=== PATIENT | female | born 1985 | race Caucasian/White ===

== ENCOUNTER 2020-06-19 11:33 | Outpatient (CLI) | payer OTHER, SELFPAY ==
--- NOTE | ~2020-06-19 | XR_ITS ---
EXAMINATION: XR foot LT min 3V EXAM DATE: 06/19/2020 12:02 INDICATION: Left foot edema. TECHNIQUE: Left foot dorsoplantar, lateral and oblique projections obtained and reviewed. There is n o prior study for comparison. FINDINGS: Left metatarsal bones unremarkable. There are no bony erosions identified. There are no acute fractures or dislocations identified. There is no subcutaneous gas. The soft tissue is unrema rkable. There are no radiopaque foreign bodies. IMPRESSION: 1. Unremarkable left foot exam. Reviewed, dictated and finalized at location B.
--- NOTE | ~2020-06-19 | US_ITS ---
EXAMINATION: US venous doppler [facility] EXAM DATE: 06/19/2020 12:32 INDICATION: Edema of foot. TECHNIQUE: Multiple grayscale, color flow and Doppler images of the left lower extremity deep venous system were obtained and reviewed. There is no prior study for comparison. FINDINGS: The left common femoral, femoral and profunda veins demonstrate normal color flow, respirat ory variation, augmentation and compressibility. Compressibility, color flow confirmed within the le ft popliteal, posterior tibial, peroneal, and greater saphenous veins. IMPRESSION: 1. No left lower extremity deep venous thrombosis. Reviewed, dictated and finalized at location B.
== END 2020-06-19 11:34 | disposition home or self-care (01) ==
PROVIDERS: PCP Physician Assistant; Visit Provider Physician Assistant
DX: R60.0 Localized edema (principal)
CPT/HCPCS: 73630; 93971

== ENCOUNTER 2022-03-21 00:35 | Day surgery (SDC) | payer OTHER, SELFPAY ==
[2022-03-11 17:46] VITALS: BMI 29.9
--- NOTE | 2022-03-11 17:56 | PC.NURSE ---
Report to the Outpatient Waiting Room, entrance under the green pavilion located off [facility], at time 0600 on date 03/21/2022. Planned Procedure Time: 0730. Time changes happen often and if your time is changed the preop area will call you the afternoon before. - You and your visitor will be asked to self-screen and do not enter if you have any COVID symptoms. - Only one visitor is requested with a max of two and NO children visitors are allowed at this time. - The patient visitor may be requested to leave or wait in car when not with patient due to distancing restrictions. - A mask is optional within the hospital at this time. Patients may have clear liquids (water, carbonated beverages, clear teas, apple juice) until 3 hours prior to surgery with a maximum of 20 ounces. 0430 - No food from midnight until time of surgery - Infants may have breast milk until 4 hours before surgery, infant formula 6 hours prior to surgery. - Children will be allowed to drink immediately following surgery. If applicable, please bring a bottle or sippy cup to assist with drinking. Juice, water, soda, and popsicles are readily available. For infants on formula, please bring formula the day of surgery. Pacifiers are allowed. Take the following medications with a SIP of water the morning of surgery: zyrtec DO NOT STOP ANY OF YOUR OTHER PRESCRIPTION MEDICATIONS PRIOR TO SURGERY ?EXCEPT THE FOLLOWING Medications to discontinue per physician N/A Date to take last dose N/A Please no make-up, nail syriac, hairspray, perfume, deodorant, or body powder the day of surgery. No jewelry (including any body piercings) or valuables the day of surgery, leave them at home. Please take a shower or bath the night before, or the morning of, surgery with an antibacterial soap. Wear comfortable, loose fitting clothing. Children are encouraged to wear pajamas. - Jewelry must be removed prior to entering the operating room. Rings and piercings that are not removed may be cut off. - The hospital will not accept responsibility for valuables. - Please leave all valuables, including medications, at home the day of surgery. If you are going home after surgery, a licensed roll off driver must drive you home. - NO public transportation without another adult if you receive anesthesia. - We recommend that an adult stay with you for 24 hours following discharge. - We also recommend that you do not drive, make important decision, drink alcoholic beverages, or take any drugs that were not prescribed by your health care provider for at least 24 hours after your discharge time. For Pediatric surgeries, we recommend two adults accompany the child home. Follow any additional instructions given to you from your surgeon. If you or anyone in your household have experienced Covid symptoms in the past week, please notify your surgeon or the nurse liaison at the phone number below for possible testing. Telephone instructions given to Siena Del Angel (Patient) and asked if any additional questions and then verbalized understanding. Patient advised to call surgeon office or pre surgery nurse liaison [phone] if any additional questions.
--- NOTE | 2022-03-20 10:53 | WPDANESEPPF ---
Anes - Initial Pre Proc Eval Procedure: Operation Date: 03/21/22 07:30 Proposed Procedures p Hysteroscopy, Dilation and Curettage, Jazmin Endometrial Ablation, Laparoscopic Bilateral Salpingectomy - Kevan Hdz MD Date/Time: 03/20/22 10:53 Surgeon: Kevan Hdz MD Pre Op Diagnosis: Menometrorrhagia, desired sterilization Patient Data Age: 37 Gender: F Height: 1.63 m Weight: 79 kg Allergies Allergy/AdvReac Type Severity Reaction Status Date / Time sulfamethoxazole AdvReac Severe Nausea Verified 03/21/22 06:24 [From Bactrim] trimethoprim [From Bactrim] AdvReac Severe Nausea Verified 03/21/22 06:24 Home Medications Medication Instructions Recorded Confirmed Type cetirizine 10 mg capsule (Zyrtec) 10 mg PO DAILY PRN Allergy Symptoms 12/31/21 03/11/22 History progesterone micronized 200 mg 200 mg PO QHS #90 caps 01/15/22 03/11/22 Rx capsule (Prometrium) triamcinolone acetonide 55 mcg 1 spray intranasal DAILY PRN 03/11/22 03/11/22 History nasal spray aerosol Allergy Symptoms Patient hx anesthesia problems: none Family hx anesthesia problems: none Results Review: All pre-operative results and documents have been reviewed as part of the pre-operative evaluation. [facility] Past Medical History Medical History Eczema since childhood Encounter for IUD insertion 10/02/13 Mirena insertion Encounter for IUD removal 09/08/15 Mirena removal Miscarriage (~2016) Oral herpes Seasonal allergies Surgical History Surgical History History of dilation and curettage 06/13/16 suction d&c--retained products of conception History of elective (~2002) Family History Family History Grandparent Diabetes mellitus maternal grandmother Hypertension maternal grandmother Carcinoma of colon maternal grandfather Acute myocardial infarction paternal grandfather Social History Social History Years smoked: 12 Smoking status: Former smoker Tobacco type: cigarettes Smoking end date: 12/19/19 Alcohol intake: current Drinks per week: 5 Substance use: never Substance use type: does not use Living arrangements: with family Additional living arrangements comments: Occupation/Education: occupation Additional occupation/education comments: asset accountant Gender identity (if verbalized by the patient): Female Sexual Orientation (if Verbalized by the Patient): Straight or Heterosexual Spiritual care concerns: No Anes - Eval Final PreProcedure Day of Procedure 03/20/22 10:53 Patient weight: overweight Heart: regular rate and rhythm Lungs: clear to auscultation Airway: Mallampati scale class II Neurological: alert and oriented Last oral intake: >/= 8 hours ASA classification: II Emergent: no Anesthetic plan: proceed Anesthesia type and monitoring: general ETT and standard monitoring Results Review: All pre-operative results and documents have been reviewed as part of the pre-operative evaluation. Informed Consent: The patient's anesthetic plan and its attendant risks and benefits were discussed with the patient/family/POA. Questions were solicited and answers provided to the satisfaction of the patient/family/POA.
--- NOTE | 2022-03-20 16:20 | PM.IMHP ---
H&P: HPI History of Present Illness Date/Time: 03/20/22 16:20 37-year-old female 4 para 02/17/2001 presents with complaints of menstrual cycles lasting 7-10 days 3-5 days heavy clotting cramping as well as significant amount of fatigue and tiredness the day before her cycle as well. She has been on control pills in the past and had an IUD in the past but does not desire any of these interventions at this time. We have discussed multiple options and she desires to proceed with ablation and salpingectomy. Chief Complaint: menometrorrhagia Review of Systems Review of Systems: All systems reviewed & are unremarkable except as noted in HPI and below PMFSH Past Medical History Medical History Eczema since childhood Encounter for IUD insertion 10/02/13 Mirena insertion Encounter for IUD removal 09/08/15 Mirena removal Miscarriage (~2016) Oral herpes Seasonal allergies Surgical History Surgical History History of dilation and curettage 06/13/16 suction d&c--retained products of conception History of elective (~2002) Family History Family History Grandparent Diabetes mellitus maternal grandmother Hypertension maternal grandmother Carcinoma of colon maternal grandfather Acute myocardial infarction paternal grandfather Social History Social History Years smoked: 12 Smoking status: Former smoker Tobacco type: cigarettes Smoking end date: 12/19/19 Alcohol intake: current Drinks per week: 5 Substance use: never Substance use type: does not use Living arrangements: with family Additional living arrangements comments: Occupation/Education: occupation Additional occupation/education comments: accountant tax Gender identity (if verbalized by the patient): Female Sexual Orientation (if Verbalized by the Patient): Straight or Heterosexual Spiritual care concerns: No Meds Home Medications and Allergies Home Medications Medication Instructions Recorded Confirmed Type cetirizine 10 mg capsule (Zyrtec) 10 mg PO DAILY PRN Allergy Symptoms 12/31/21 03/11/22 History progesterone micronized 200 mg 200 mg PO QHS #90 caps 01/15/22 03/11/22 Rx capsule (Prometrium) triamcinolone acetonide 55 mcg 1 spray intranasal DAILY PRN 03/11/22 03/11/22 History nasal spray aerosol Allergy Symptoms Allergies Allergy/AdvReac Type Severity Reaction Status Date / Time sulfamethoxazole AdvReac Severe Nausea Verified 03/11/22 17:43 [From Bactrim] trimethoprim [From Bactrim] AdvReac Severe Nausea Verified 03/11/22 17:43 Exam Const: General: cooperative, healthy appearing and comfortable Resp: Effort & Inspection: normal respiratory effort Auscultation: clear to auscultation bilaterally Cardio: Rate: regular rate Rhythm: regular rhythm GI: Inspection: normal to inspection Auscultation: normal bowel sounds : External Female Exam: normal external appearance Speculum Exam - Vagina: normal appearance of the vagina Speculum Exam - Cervix: normal appearance of the cervix Bimanual exam- vagina & uterus: enlarged ( 8-10 week size) Bimanual Exam- Adnexa, other: normal adnexae Assessment and Plan Assessment and plan (1) Menometrorrhagia: Code(s): N92.1 - Excessive and frequent menstruation with irregular cycle Status: Acute (2) Encounter for female sterilization procedure: Code(s): Z30.2 - Encounter for sterilization Status: Acute Plan 1. Hysteroscopy with uterine curettings 2. Endometrial ablation 3. Bilateral salpingectomy via laparoscope
[2022-03-21] VITALS (7 sets, daily range): BP systolic 104–115; BP diastolic 63–79; PULSE 60–94; RESP 12–16; TEMP 36.7–36.8; O2SAT 97–100
[2022-03-21] MEDS: ACETAMINOPHEN 500 MG TABLET 1000 MG PO (06:25)
[2022-03-21] MEDS: LACTATED RINGERS 1,000 ML 30 ML IV CONT ×2 (06:40→08:16)
[2022-03-21] MEDS: KETOROLAC 15 MG/ML VIAL (*BKC) IV PUSH (06:45)
--- NOTE | 2022-03-21 07:19 | WPDHPUPDATE1 ---
History and Physical Update Update Date/Time: 03/21/22 07:19 History and Physical has been reviewed, including an updated exam of the patient. There are NO changes in the patient's condition. Risks, benefits, and alternatives have been discussed and questions answered. Patient agrees to proceed with procedure.
[2022-03-21] MEDS: ceFAZolin 2 GM/D5W 50 ML 2 GM/50 ML BAG IVPB (07:27)
--- NOTE | 2022-03-21 08:13 | W.PM.PROC2 ---
Procedure Note - Detailed Date of Procedure 03/21/22 Pre-op Diagnosis 1. Menometrorrhagia 2. Undesired fertility Post-op Diagnosis Same Procedure Performed 1. Hysteroscopy with uterine curettings 2. Endometrial ablation 3. Laparoscopic bilateral salpingectomy Surgeon Kevan Hdz MD Anesthesia General Findings 1. Laparoscopic evaluation revealed no abnormalities with tubes ovaries or uterus 2. Hysteroscopic exam revealed no abnormalities in the endometrial cavity. Description of Procedure Patient prepped draped usual manner for this procedure. Cervical instruments placed for uterine mobility later in the case. Abdominal trocar sites were marked and instruments were placed under direct visualization. Mesial salpinx bilaterally were cauterized and cut and removed using the Harmonic scalpel. There was no bleeding gas was allowed to escape and incisions were approximated using 4-0 Monocryl. Cervix was dilated to allow the hysteroscope to be placed which did reveal normal cavity, curettings were obtained, and endometrial ablation instrument was placed. Cavity assessment was performed and instrument was activated. At the end of the cycle hysteroscopic exam again revealed no abnormalities and good destruction throughout. Patient was then sent to the recovery room in stable condition. Estimated Blood Loss 10 Drains No Packing No Pathology Yes Complications No immediate complications Condition Stable Disposition PACU [facility] Billing Surgery - Charge Forward: Surgery Billing
== END 2022-03-21 09:38 | disposition home or self-care (01) ==
PROVIDERS: PCP Physician Assistant; Visit Provider Obstetrics & Gynecology
PROC: 0UDB8ZZ Extraction of Endometrium, Via Natural or Artificial Opening Endoscopic (ICD-10-PCS; CPT 58558; principal; 2022-03-21 07:30)
DX: N92.1 Excessive and frequent menstruation with irregular cycle (principal); Z30.2 Encounter for sterilization; Z87.891 Personal history of nicotine dependence
CPT/HCPCS: 58563; 58661; 88302; 88305; A9270; J0690; J1100; J1170; J1885; J2250; J2405; J2704; J2710; J3010; J7030; J7120